=== PATIENT | male | born 1950 | race Caucasian/White ===

== ENCOUNTER 2018-04-17 10:24 | Inpatient (IN) ==
--- NOTE | 2018-04-17 10:52 | EKG Report ---
Test Performed on : 04/17/2018 10:39:45 AM Test Reason : syncope Blood Pressure : / mmHG Vent. Rate : 080 BPM Atrial Rate : 080 BPM P-R Int : 150 ms QRS Dur : 140 ms QT Int : 396 ms P-R-T Axes : 041 041 033 degrees QTc Int : 456 ms Normal sinus rhythm. Right bundle branch block Abnormal ECG No previous ECGs available Unconfirmed Result
[2018-04-17 11:15] LABS: INR 0.99; PROTIME 13.8 Seconds (11.0-16.0)
[2018-04-17 11:16] LABS: PTT 31.4 Seconds (22.3-41.8)
[2018-04-17 11:29] LABS: BASO# 0.05 X1000 (0.0-0.2); BASO% 0.3 % (0.0-0.8); EOS# 0.06 X1000 (0.0-0.7); EOS% 0.4 % (0.0-10.0); HEMATOCRIT 28.4 % (42.0-52.0); HEMOGLOBIN 8.9 g/dL (14.0-18.0); IMM GRAN% 1.3 % (0.0-0.5); LYMPH# 2.05 X1000 (1.2-3.4); LYMPH% 13.8 % (20.5-51.1); MCH 30.2 PG (27-31); MCHC 31.3 g/dL (33-37); MCV 96.3 FL (81-99); MONO# 1.02 X1000 (0.11-0.59); MONO% 6.8 % (1.7-9.3); MPV 11.4 FL (7.4-10.4); NEUT# 11.52 X1000 (1.4-6.5); NEUT% 77.4 % (42.2-75.2); PLT 203 X1000 (130-400); RBC 2.95 XMIL (4.7-6.1); RDW 14.4 % (11.5-14.5)
--- NOTE | 2018-04-17 11:34 | Diag Imaging Result Doc PS360 ---
CHEST-2 VIEWS - 04/17/2018 INDICATION: syncope COMPARISON: None FINDINGS: The lungs are normally expanded and clear. Heart size and mediastinal contours are normal. No pneumothorax or pleural effusion. IMPRESSION: Negative exam. Electronically signed by Ky Skinner 04/17/2018 11:32 AM
[2018-04-17 11:41] LABS: ALB/GLOB RATIO 1.5; ALBUMIN 3.9 g/dL (3.5-5.0); CREATININE 2.6 mg/dL (0.7-1.2); POTASSIUM 5.5 mmol/L (3.5-5.1); TOTAL BILIRUBIN 0.18 mg/dL (0.20-1.00); TOTAL PROTEIN 6.5 g/dL (6.3-8.3)
[2018-04-17] MEDS ORDERED: AFRIN NASAL SPRAY NAS ONE ×3 (12:20→21:51)
--- NOTE | 2018-04-17 12:59 | H&P REVIEW ---
H&P Update Document any changes: Seen and examined by me. Case disucssed with Dr. Garber. Will place rhino rocket left nare and have follow-up with [facility] in [place]. He has renal insufficiency, sees Dr. Loco. Will be ok for d/c. Lab abnormalities are likely chronic, anemia may be acute on chronic.
--- NOTE | 2018-04-17 13:27 | PROVIDER DOCUMENTATION ---
This chart was entered by Nicole Maloney Scribe, acting as scribe for Juanito Garber MD. HPI-EENT General - General Chief Complaint: Nose Bleed Stated Complaint: NOSE BLEED Time Seen by Provider: 04/17/18 11:41 Source: patient - History of Present Illness-EENT General Nature of Presenting Problem: Patient is a 58 year old male who presents to the ED with nosebleed. Patient states nosebleed has been intermittent since last night around 2144. Patient does not report trauma or injury. Patient denies being on a blood thinner. EENT Location: reports: nose Quality of Pain: reports: none Severity: reports: mild Onset/Duration: reports: last night (2144) Timing: reports: still present, intermittent Prearrival Treatment: Initiated no prearrival treatment Associated Symptoms: reports: denies symptoms Locality of Occurance: Home Similar Symptoms Previously?: Yes Recently seen or treated by another doctor?: Yes - Nose Nose Problem Symptoms: nosebleed Review of Systems - Adult - REVIEW OF SYSTEMS - ADULT Constitutional: reports: no symptoms reported Eyes: reports: no symptoms reported Ears, Nose, Mouth & Throat: reports: epistaxis. denies: ear pain, nose pain, throat pain Cardiovascular: reports: no symptoms reported Respiratory: reports: no symptoms reported Gastrointestinal: reports: no symptoms reported Genitourinary: reports: no symptoms reported Musculoskeletal: reports: no symptoms reported Integumentary: reports: no symptoms reported Neurological: reports: no symptoms reported Psychiatric: reports: no symptoms reported Endocrine: reports: no symptoms reported Hematologic/Lymphatic: reports: no symptoms reported Allergic/Immunologic: reports: no symptoms reported All Other Systems: Reviewed and Negative Past History - Adult - PAST MEDICAL HISTORY-ADULT Review of Records: reports: Nursing Assessment Review, Medications Reviewed, Social history reviewed & non-contributory. Major Childhood Illnesses: reports: denies history Cardiovascular: reports: HTN, hyperlipidemia Respiratory: reports: denies history Gastrointestinal: reports: denies history Obstetrical/Gynecological: reports: denies history Genitourinary: reports: denies history Musculoskeletal: reports: denies history Neurological: reports: denies history Psychiatric: reports: denies history Endocrine/Immune: reports: Diabetes Other Conditions: reports: denies history - PRIOR SURGERIES/PROCEDURES Surgical/Procedure History: reports: reviewed, not pertinent - IMMUNIZATION STATUS Childhood Immunizations: See Nurse Assessment Flu Vaccine: See Nurse Assessment - FAMILY HISTORY Family History: reviewed, not pertinent - SOCIAL HISTORY Smoking: cigarettes (former) Substance Use: denies Physical Exam- EENT - Physical Exam EENT Initial Vital Signs Reviewed: Yes General Appearance: alert, no apparent distress Eye Exam: bilateral eye: normal inspection, PERRL, EOMI Ear Exam: bilateral ear: auricle normal, canal normal, TM normal Nasal Exam: active bleeding (bilateral nares) Throat Exam: normal mouth inspection Respiratory: chest non-tender, lungs clear, normal breath sounds Cardiovascular: normal peripheral pulses, regular rate, rhythm Integumentary: normal color, normal turgor, warm/dry Neurologic: grossly normal Psych/Mental Status: normal mood/affect, oriented x 3 Progress - PLAN OF CARE/RESULTS Progress/Plan/Lab Results: Vital Signs - 8 hr 04/17/18 10:27 Pulse Rate 88 Respiratory Rate 18 Blood Pressure 108/62 O2 Sat by Pulse Oximetry 100 Laboratory Results - last 24 hr 04/17/18 04/17/18 04/17/18 10:47 10:47 10:47 WBC 14.90 H RBC 2.95 L Hgb 8.9 L Hct 28.4 L MCV 96.3 MCH 30.2 MCHC 31.3 L RDW Std Deviation 14.4 Plt Count 203 MPV 11.4 H Immature Gran % (Auto) 1.3 H Neut % (Auto) 77.4 H Lymph % (Auto) 13.8 L Loup % (Auto) 6.8 Eos % (Auto) 0.4 Baso % (Auto) 0.3 Immature Gran # (Auto) 0.20 H Neut # (Auto) 11.52 H Lymph # (Auto) 2.05 Loup # (Auto) 1.02 H Eos # (Auto) 0.06 Baso # (Auto) 0.05 PT INR PTT (Actin FS) Sodium 133 L Potassium 5.5 H Chloride 99 Carbon Dioxide 23 L Anion Gap 11 BUN 86 H Creatinine 2.6 H Estimated GFR/1.73 m2 25 BUN/Creatinine Ratio 33 Glucose 137 H Calculated Osmolality 295 Calcium 9.0 Total Bilirubin 0.18 L AST 16 ALT 16 Alkaline Phosphatase 59 Creatine Kinase 165 Troponin T Hje-C-Xoketpomygg Pept 336 H Total Protein 6.5 Albumin 3.9 Globulin 2.6 Albumin/Globulin Ratio 1.5 04/17/18 04/17/18 10:47 10:47 WBC RBC Hgb Hct MCV MCH MCHC RDW Std Deviation Plt Count MPV Immature Gran % (Auto) Neut % (Auto) Lymph % (Auto) Loup % (Auto) Eos % (Auto) Baso % (Auto) Immature Gran # (Auto) Neut # (Auto) Lymph # (Auto) Loup # (Auto) Eos # (Auto) Baso # (Auto) PT 13.8 INR 0.99 PTT (Actin FS) 31.4 Sodium Potassium Chloride Carbon Dioxide Anion Gap BUN Creatinine Estimated GFR/1.73 m2 BUN/Creatinine Ratio Glucose Calculated Osmolality Calcium Total Bilirubin AST ALT Alkaline Phosphatase Creatine Kinase Troponin T 0.021 Epo-B-Euzungrkavz Pept Total Protein Albumin Globulin Albumin/Globulin Ratio Orders Category Date Time Status Cardiac Monitoring DIRECTED Care 04/17/18 10:38 Active Nursing [[facility] [place]. NRSG Communication Order] DIRECTED Care 04/17/18 13:01 Active Oxygen Therapy- ED Nursing DIRECTED Care 04/17/18 10:38 Active Saline Loc NOW Care 04/17/18 10:38 Active CHEST-2 VIEWS [RAD] Stat Exams 04/17/18 10:38 Completed CBC WITH ELECTRONIC DIFF [HEME] Stat Lab 04/17/18 10:47 Completed CK PROFILE [SP CHEM] Stat Lab 04/17/18 10:47 Completed COMPREHENSIVE METABOLIC PANEL [CHEM] Stat Lab 04/17/18 10:47 Completed PRO B-NATRIURETIC PEPTIDE Stat Lab 04/17/18 10:47 Completed PROTIME WITH INR [COAG] Stat Lab 04/17/18 10:47 Completed PTT [COAG] Stat Lab 04/17/18 10:47 Completed TROPONIN T Stat Lab 04/17/18 10:47 Completed Oxymetazoline Nasal Arboles [Afrin Nasal Arboles] Med 04/17/18 12:20 Discontinued 2 ml MELITON NOW ONE CP/SOB/Palp >45 yrs of Age Stat Oth 04/17/18 10:37 Ordered EKG [EKG] Stat Ther 04/17/18 10:38 Draft A/P: Epistaxis. Controlled with direct pressure and afrnin. Pt does not want to have nasal trumpet inserted, would prefer to FU with ENT and have them further evaluate him. Vitals are stable. 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 Pt has possible cellulitis, will Rx keflex. Pt has electrolyte imbalances suspected due to CKD. Will have pt FU with Dr Champagne and Dr Zhu ENT in [place], will also apply bilateral nasal trumpets. Result Diagrams: 04/17/18 10:47 04/17/18 10:47 - REASSESSMENT Reassessment #1 Time Reassessed: 12:19 Status: improving (after applying 10 minutes of constant pressure nosebleed resolved) - EKG 1 Time of EKG reading by physician:: 10:39 EKG Read and Signed by:: Devin Horn EKG Interpretation (*Must complete 3 of following elements*): Abnormal Rate: 80 Rhythm: normal sinus rhythm QRS: RBB NE Interval: normal Comments: abnormal ECG - XRAY 1 XRAY Study: Chest Impression: See EMR Report ( CHEST-2 VIEWS - 04/17/2018 INDICATION: syncope COMPARISON: None FINDINGS: The lungs are normally expanded and clear. Heart size and mediastinal contours are normal. No pneumothorax or pleural effusion. IMPRESSION: Negative exam. Electronically signed by Ky Skinner 2018 11:32 AM 04/17/18 1132 Interpreting Physician: Ky Skinner MD Dictated Date/Time: 04/17/18 1132 cc: Devin Horn MD; ANTONIA LIM) Procedures - ENT PROCEDURES Epistaxis Management: Left Clots cleared from Nasal Passages:: By Patient Blowing Nose Nasal Drops Instilled: Afrin Inspection: Otoscope Cauterized with Silver Nitrate?: No Nasal Rocket Insertion: Left Departure - Departure Date of Disposition Decision: 04/17/18 Time of Disposition Decision: 12:45 DIAGNOSIS: Epistaxis Disposition: HOME 01 Certified Medical Emergency: Emergent Condition: Stable Additional Freetext Instructions: We have examined and treated you today on an emergency basis only. This was not a substitute for, or an effort to provide, complete medical care. In most cases , you must let your doctor check you again. Tell your doctor about any new or lasting problems. We cannot recognize and treat all injuries or illnesses in one Emergency Department visit. If you had special tests, such as X-rays or CT scans, will be reviewed by radiologist and will call you if there are any new suggestions Follow up with primary care provider in 1 to 2 days if no improvement. If you do not have a primary care provider, you need to choose one as soon as possible. Take medicines as prescribed. Monitor for any side effects or adverse events from medications. If any side effect, adverse event or rash develops, or if you suspect any other adverse reaction to the medication, then discontinue the medication immediately and contact clinic /PCP or go to the nearest ER. Narcotic meds / sedative meds instruction - patent advised not to drive, operate any machinery or go into water after taking meds as it may impair mental ability to react to the situation in an appropriate manner. Continue other current medicines. Follow up with PCP within 24-48 hours, or sooner if symptoms worsen or fail to improve. Patient / guardian verbalizes understanding of treatment plan, medication, and side effects and agrees with treatment plan. Patient leaves ER in stable condition and ambulatory state. Return to ER as needed. Discharge instructions reviewed verbally and given to patient in written form. Follow up with primary care provider. Referrals and Follow-Ups: ANTONIA LIM CRNP [Primary Care Provider] - Glen Sandra MD [ACTIVE STAFF PHYSICIAN] - Vandana Davis [NON-STAFF PROVIDER] - - Critical Care Note This patient required my direct & personal management of CC.: No Attestation - Physician/ SABINA Attestation Patient care was provided by Advanced Practice Provider:: No The physician spent face to face time with patient:: Yes Advanced Practice Provider documentation review:: Supervising physician onsite and consulted in the evaluation and care of this patient. The physician did have a face to face encounter with the patient. This chart was documented by the indicated scribe, (Nicole Maloney Scribe) and accurately reflects the services I performed and decisions made by me, Juanito Garber MD, as attested by the provider's signature.
[2018-04-17] MEDS ORDERED: KAYEXALATE PO ONE (15:44)
--- NOTE | 2018-04-17 15:55 | EKG Report ---
Test Performed on : 04/17/2018 2:19:06 PM Test Reason : post cardiac arrest Blood Pressure : / mmHG Vent. Rate : 075 BPM Atrial Rate : 075 BPM P-R Int : 160 ms QRS Dur : 134 ms QT Int : 402 ms P-R-T Axes : 065 040 046 degrees QTc Int : 448 ms Normal sinus rhythm. Right bundle branch block Abnormal ECG When compared with ECG of 17-APR-2018 10:39, (Unconfirmed) No significant change was found Unconfirmed Result
[2018-04-17 16:01] LABS: HEMOGLOBIN A1C 5.1 % (4.8-6.0)
--- NOTE | 2018-04-17 16:21 | Diag Imaging Result Doc PS360 ---
EXAM: CT ABDOMEN/PELVIS W/O CONTRAST INDICATION: vomiting blood TECHNIQUE: This exam was performed using automated exposure control, adjustment of mA or kV according to patient size, and/or use of iterative reconstruction technique. COMPARISON: None. FINDINGS: The liver, gallbladder, spleen, pancreas, adrenal glands, and kidneys are unremarkable. The urinary bladder is nondistended and is grossly unremarkable as imaged with unenhanced CT. There is moderate to advanced diverticulosis coli but no evidence of diverticulitis. The stomach and small bowel are grossly unremarkable as imaged. There is extensive aortoiliac atherosclerotic calcification and there is evidence of prior aortobifem grafting. No focal inflammatory changes, free abdominal gas, or free fluid is identified. IMPRESSION: 1.Uncomplicated diverticulosis coli. 2.Other incidental/nonacute findings detailed above. No definite acute pathology by CT. Electronically signed by Héctor Da Silva 04/17/2018 4:19 PM
--- NOTE | 2018-04-17 16:59 | HISTORY AND PHYSICAL ---
PRIMARY CARE PHYSICIAN: [facility]ero, in [place], [place]. CHIEF COMPLAINT: Nose bleed. HISTORY OF PRESENT ILLNESS: This is a 67-year-old male with a past medical history of hypertension, diabetes, hypercholesteremia, peripheral vascular disease, and chronic kidney disease who presented to the emergency department this morning because he was having nose bleeding again. He reports that yesterday around 10 a.m. he started having nose bleeding that was mostly coming from the left nostril. After he tried to make some compression and put some paper in his nose for a long period of time he was not able to stop the bleeding, so he decided to go to [facility] and he was discharged yesterday. Today he started having nasal bleeding again. Actually he reports that he was not able to sleep because he was having slow nasal bleeding and so he decided to come to this hospital. While he was here in the ER he was feeling lightheaded and he was feeling like he was about to pass out. Actually what he had was syncope because we were informed by the ER that the patient had a cardiorespiratory arrest but it was truly syncope. That lasted just a few seconds. The patient reports that he remembers almost all of the episode. He actually started feeling dizziness this morning. Also while he was in the ER he had one episode of vomiting clots. We were called for admission for those reasons. PAST MEDICAL HISTORY: 1. Diabetes mellitus type 2. 2. Hypertension. 3. Hypercholesteremia. 4. Peripheral vascular disease. 5. Chronic kidney disease stage 2. Dr. Sandra is his primary edge bander hand. PAST SURGICAL HISTORY: Two years ago he had an aortoiliac bypass done in [place]. ALLERGIES: No known drug allergies. SOCIAL HISTORY: He quit smoking 7 years ago but before that he used to smoke 1 pack per day. He drinks 2 cans of beer every day most of the time. He denies using any illicit drugs. REVIEW OF SYSTEMS: Eleven systems were reviewed and all symptoms are related to the H and P. PHYSICAL EXAMINATION: VITAL SIGNS: Temperature has not been checked in the ER. Heart rate 88, respiratory rate 18, blood pressure 108/62, O2 saturation 100% on 2 L nasal cannula. GENERAL EXAMINATION: This is a chronically ill-looking, 67-year-old male, lying in bed, in no acute distress.. HEENT: Head is normocephalic, atraumatic. Mucous membranes dry. Both nostrils are full of blood with many clots located in the left nostril. NECK: No JVD noted. No carotid bruits. No lymphadenopathy. No thyromegaly. CARDIOVASCULAR: S1, S2 heard. No murmurs, gallops, or rubs. Regular rate and rhythm. RESPIRATORY: Wheezing all over both pulmonary oden. Patient is not using any accessory muscles or having work of breathing. ABDOMEN: Soft. Nontender to palpation. Nondistended. There is old surgical scar from the epigastrium all the way down to both legs. No signs of peritoneal irritation. EXTREMITIES: No clubbing, cyanosis, or edema. Peripheral pulses present in both legs. NEUROLOGICAL: Patient is alert and oriented x3. Moves 4 extremities. LABORATORY DATA: White cell count 14.9, hemoglobin 8.9, hematocrit 28.4, platelets 203,000. Sodium 133, potassium 5.5, chloride 99, and creatinine 2.6. ProBNP 336. ASSESSMENT AND PLAN: 1. Severe epistaxis. That is the reason why this patient basically came to the hospital. It was severe enough to cause lightheadedness and 1 episode of vasovagal syncope. At this point, we will check BMP and will check CBC tomorrow. Will call ENT and inform them that this patient has had profuse epistaxis to the point that he had a syncopal episode. 2. Chronic obstructive pulmonary disease exacerbation. Patient has no history of COPD but considering his long history of smoking, I think he is in exacerbation. We will provide DuoNeb every 6 hours scheduled and every 2 hours p.r.n. Because there is an elevated white cell count and the patient has not been taking any antibiotics, I think will add Levaquin to his current treatment. 3. Hyperkalemia. We know that this patient has known chronic kidney disease stage 3. We are going to provide 1 dose of Kayexalate by mouth and see how he does. 4. Chronic kidney disease stage 3. We do not have any creatinine to compare. In any case, we are going to monitor this patient closely. 5. Diabetes mellitus type 2. We will do hemoglobin A1c and will do sliding scale insulin. Accu- Chek before meals and also at bedtime. 6. Hematemesis. I think he has vomited blood because he has been dripping blood from his nose for last at least 24 hours. We are going to check a CT of the abdomen without contrast to see if there is any abnormality in the GI tract and we may need to do a GI consult but not at this time. 7. Hypertension. Blood pressure is under control. I do not think we need to restart any of his medications. 8. Peripheral vascular disease. We will continue home medications. 9. Further recommendations to follow according to the clinical situation of the patient. cc: Will Rucker MD MTDD
[2018-04-17] MEDS: LEVAQUIN 750 MG/D5W 750 MG/150 ML IVPB IV SCH (17:48)
[2018-04-17] MEDS ORDERED: DUONEB (A & A) INH PRN (18:27)
[2018-04-17] MEDS ORDERED: NS 1,000 ML IV ONE (18:27)
[2018-04-17] MEDS ORDERED: ZOFRAN IV PRN (18:27)
[2018-04-17] MEDS ORDERED: VITAMIN D PO SCH (18:27)
[2018-04-17] MEDS: HUMALOG SUBQ SCH (18:31)
[2018-04-17] MEDS: SODIUM CHLORIDE 0.9% INJ SCH (18:52)
[2018-04-17] MEDS: NS 1,000 ML IV SCH (18:52)
[2018-04-17] MEDS: PROTONIX IV SCH (18:52)
[2018-04-17 20:15] LABS: INR 1.05; PROTIME 14.5 Seconds (11.0-16.0)
[2018-04-17 20:16] LABS: BASO# 0.06 X1000 (0.0-0.2); BASO% 0.5 % (0.0-0.8); EOS# 0.02 X1000 (0.0-0.7); EOS% 0.2 % (0.0-10.0); HEMATOCRIT 23.2 % (42.0-52.0); HEMOGLOBIN 7.3 g/dL (14.0-18.0); IMM GRAN# 0.21 X1000 (0.0-0.04); IMM GRAN% 1.6 % (0.0-0.5); LYMPH# 1.97 X1000 (1.2-3.4); LYMPH% 14.8 % (20.5-51.1); MCHC 31.5 g/dL (33-37); MCV 95.5 FL (81-99); MONO% 6.8 % (1.7-9.3); MPV 11.3 FL (7.4-10.4); NEUT# 10.12 X1000 (1.4-6.5); NEUT% 76.1 % (42.2-75.2); PLT 190 X1000 (130-400); RBC 2.43 XMIL (4.7-6.1); WBC 13.28 X1000 (4.8-10.8)
[2018-04-17 20:33] LABS: CALCIUM 8.5 mg/dL (8.8-10.2); CREATININE 3.2 mg/dL (0.7-1.2); MAGNESIUM 1.9 mg/dL (1.5-2.7)
[2018-04-17] MEDS: DUONEB (A & A) INH SCH (21:23)
[2018-04-18] MEDS: HUMALOG SUBQ SCH ×5 (00:52→22:25)
[2018-04-18] MEDS: NS 1,000 ML IV SCH ×4 (02:02→18:49)
[2018-04-18] MEDS: AFRIN NASAL SPRAY NAS SCH ×4 (02:27→23:33)
[2018-04-18 03:05] LABS: HEMATOCRIT 27.9 % (42.0-52.0); HEMOGLOBIN 9.1 g/dL (14.0-18.0)
[2018-04-18] MEDS: DUONEB (A & A) INH SCH ×5 (03:23→22:00)
[2018-04-18] MEDS: PROTONIX IV SCH ×3 (06:21→18:00)
[2018-04-18] MEDS: SODIUM CHLORIDE 0.9% INJ SCH (06:21)
[2018-04-18 06:54] LABS: BASO# 0.03 X1000 (0.0-0.2); BASO% 0.3 % (0.0-0.8); EOS# 0.02 X1000 (0.0-0.7); EOS% 0.2 % (0.0-10.0); HEMATOCRIT 22.1 % (42.0-52.0); HEMOGLOBIN 6.9 g/dL (14.0-18.0); IMM GRAN# 0.26 X1000 (0.0-0.04); IMM GRAN% 2.4 % (0.0-0.5); LYMPH% 10.9 % (20.5-51.1); MCH 29.7 PG (27-31); MCHC 31.2 g/dL (33-37); MCV 95.3 FL (81-99); MONO# 1.01 X1000 (0.11-0.59); MONO% 9.2 % (1.7-9.3); MPV 11.4 FL (7.4-10.4); NEUT# 8.47 X1000 (1.4-6.5); PLT 131 X1000 (130-400); RBC 2.32 XMIL (4.7-6.1); RDW 14.6 % (11.5-14.5); WBC 10.99 X1000 (4.8-10.8)
[2018-04-18 07:23] LABS: CREATININE 2.4 mg/dL (0.7-1.2); POTASSIUM 3.7 mmol/L (3.5-5.1)
--- NOTE | 2018-04-18 07:25 | EKG Report ---
Test Performed on : 04/17/2018 7:16:45 PM Test Reason : passed out Blood Pressure : / mmHG Vent. Rate : 106 BPM Atrial Rate : 106 BPM P-R Int : 148 ms QRS Dur : 132 ms QT Int : 382 ms P-R-T Axes : 066 -15 043 degrees QTc Int : 507 ms Sinus tachycardia. Right bundle branch block Abnormal ECG When compared with ECG of 17-APR-2018 14:19, (Unconfirmed) No significant change was found Confirmed by Raudel LEMUS, Jorge Ramos ([id number]) on 04/18/2018 8:50:09 AM
[2018-04-18 07:27] LABS: CALCIUM 6.1 mg/dL (8.8-10.2)
[2018-04-18 07:38] LABS: INR 1.3; PROTIME 17.2 Seconds (11.0-16.0)
[2018-04-18] MEDS ORDERED: CALCIUM GLUCONATE 1 GM in NS 50 ML IV ONE (08:05)
[2018-04-18] MEDS: CARDIZEM CD PO SCH ×2 (08:55)
[2018-04-18] MEDS: VITAMIN B-12 PO SCH (08:55)
[2018-04-18] MEDS: ZETIA PO SCH (08:55)
[2018-04-18] MEDS: CRESTOR PO SCH (08:56)
[2018-04-18] MEDS ORDERED: ACTOS PO SCH (09:00)
--- NOTE | 2018-04-18 09:42 | PROGRESS NOTE ---
DATE: 04/18/2018 SUBJECTIVE: The patient was examined this morning, doing well. Eating full breakfast. No further bleeding. Epistaxis is controlled with current pack. DIAGNOSTIC DATA: Hematocrit this morning at 22. IMPRESSION: 1. Epistaxis, controlled with current pack. We will leave the pack in the nasal cavity until Saturday. He does not necessarily need to be in the hospital because of the pack. We will defer to the medical team for discharge options. If he is discharged home in good medical condition, he will be seen in my office on Saturday for pack removal. 2. Anemia. He has received 2 units of packed red cells, and according to nursing this morning, the plan is for 2 more units today. 3. Discharge plan. We will defer to medical team. If epistaxis is controlled, then he can be discharged at their discretion. cc: Johann Loaiza MD
[2018-04-18] MEDS: MAGNESIUM GLUCONATE PO SCH (09:54)
--- NOTE | 2018-04-18 12:48 | PROGRESS NOTE ---
DATE: 04/18/2018 SUBJECTIVE: The patient reports feeling fine. No more bleeding. He reports feeling hungry. No other complaints noted. No abdominal pain. OBJECTIVE: Vital Signs: Temperature 98.9, heart rate 94, respiration 17, blood pressure 144/61. O2 saturation 100% on 4 L nasal cannula. General: This is a chronically ill- looking, obese, 67- year-old male lying in bed in no acute distress. HEENT: Head is normocephalic, atraumatic. There is a pack in the left nostril. No active bleeding noted. Neck: No JVD noted. No carotid bruits. No lymphadenopathy. No thyromegaly. Cardiovascular: S1, S2 heard. No murmurs, gallops, or rubs. Regular rate and rhythm. Respiratory: There is less wheezing noted in both pulmonary oden. The patient is not using any accessory muscles or having work of breathing. Abdomen is soft, nontender to palpation. Bowel sounds present. No organomegaly. Extremities: No clubbing, cyanosis, or edema. Peripheral pulses present in both legs. Neurologic: Patient alert and oriented x3. Moves 4 extremities. LABORATORY DATA: White count 10.99, hemoglobin 6.9, hematocrit 22.1, platelets 131,000 with INR 1.3. BMP remarkable for creatinine 2.4 with calcium 6.1. ASSESSMENT AND PLAN: 1. Severe epistaxis. That condition is controlled right now. ENT, Dr. Loaiza, saw this patient last night and placed a pack in the left nostril. Since then he has been controlling it. At this point, we will continue to follow recommendations from him which are keeping that pack on until next Saturday. 2. Anemia of blood loss. Hemoglobin is 6.9 this morning. Hemoglobin drawn here in this hospital was 8.9. He has received so far 2 units of blood. At this point, I prefer to go ahead and transfuse 2 more units and see how he does. He is not feeling nauseated. He does not have anymore episodes of nose bleeding. We will continue checking CBC daily. 3. Chronic obstructive pulmonary disease exacerbation. Patient is receiving breathing treatments with DuoNeb every 6 hours and every 2 hours p.r.n. Since then, he reports breathing much better. The patient is also receiving Levaquin daily and white cell count is getting better. We will continue with the same management. 4. Hyperkalemia. Potassium is back to normal today. 5. Chronic kidney disease, stage 3. Creatinine is back to baseline; it is 2.4 today. We will continue monitoring this patient closely. 6. Diabetes mellitus, type 2. Hemoglobin A1c is 5.1, which is good controlled diabetes. We will continue with Accu-Cheks before meals and also at bedtime. 7. Hypertension. Blood pressure is under control. I do not think we need to restart any medication we will continue to monitor. 8. Peripheral vascular disease. Patient will be continue with home medications. DISPOSITION: We are going to continue to monitor this patient 1 more day in the Intensive Care Unit and make sure that he is hemodynamically stable and then he can be transferred to a regular room tomorrow if everything is okay. cc: Will Rucker MD MTDD
[2018-04-18] MEDS ORDERED: TEARISOL OPH SOLUTION BOTH EYES PRN (15:08)
[2018-04-18] MEDS: LEVAQUIN 750 MG/D5W 750 MG/150 ML IVPB IV SCH (17:18)
[2018-04-18] MEDS: APRESOLINE IV PRN ×2 (18:03→23:38)
[2018-04-18] MEDS ORDERED: TYLENOL PO PRN (23:00)
[2018-04-19] MEDS: DUONEB (A & A) INH SCH ×2 (03:35→10:49)
[2018-04-19] MEDS: NS 1,000 ML IV SCH ×2 (05:35→11:55)
[2018-04-19] MEDS: PROTONIX IV SCH (05:35)
[2018-04-19] MEDS: HUMALOG SUBQ SCH ×2 (06:03→12:20)
[2018-04-19 07:32] LABS: INR 1.04; PROTIME 14.4 Seconds (11.0-16.0)
[2018-04-19 07:39] LABS: CALCIUM 8.7 mg/dL (8.8-10.2); CREATININE 1.9 mg/dL (0.7-1.2); POTASSIUM 4.5 mmol/L (3.5-5.1)
[2018-04-19 07:40] LABS: BASO# 0.03 X1000 (0.0-0.2); BASO% 0.2 % (0.0-0.8); EOS# 0.07 X1000 (0.0-0.7); EOS% 0.6 % (0.0-10.0); HEMATOCRIT 32.8 % (42.0-52.0); HEMOGLOBIN 10.3 g/dL (14.0-18.0); IMM GRAN# 0.31 X1000 (0.0-0.04); IMM GRAN% 2.5 % (0.0-0.5); LYMPH# 1.29 X1000 (1.2-3.4); LYMPH% 10.4 % (20.5-51.1); MCH 29.3 PG (27-31); MCHC 31.4 g/dL (33-37); MCV 93.4 FL (81-99); MONO# 1.23 X1000 (0.11-0.59); MONO% 9.9 % (1.7-9.3); MPV 10.3 FL (7.4-10.4); NEUT% 76.4 % (42.2-75.2); PLT 155 X1000 (130-400); RBC 3.51 XMIL (4.7-6.1); WBC 12.43 X1000 (4.8-10.8)
[2018-04-19] MEDS: ZETIA PO SCH (10:29)
[2018-04-19] MEDS: CARDIZEM CD PO SCH ×2 (10:29→10:31)
[2018-04-19] MEDS: CRESTOR PO SCH (10:31)
[2018-04-19] MEDS: VITAMIN B-12 PO SCH (10:31)
[2018-04-19] MEDS: MAGNESIUM GLUCONATE PO SCH (10:31)
[2018-04-19] MEDS: AFRIN NASAL SPRAY NAS SCH (10:32)
[2018-04-19 12:21] VITALS: BP 153/78
--- NOTE | 2018-04-19 15:30 | DISCHARGE SUMMARY ---
ADMISSION DATE: 04/17/2018 DISCHARGE DATE: 04/19/2018 DISCHARGE DIAGNOSES: 1. Severe epistaxis, resolved. 2. Chronic obstructive pulmonary disease exacerbation, improved. 3. Hyperkalemia, resolved. 4. Chronic kidney disease stage 3, stable. 5. Diabetes mellitus type 2. 6. Hypertension. 7. Peripheral vascular disease. CONSULTATIONS: Dr. Johann Loaiza, ENT. PROCEDURES: Chest x-ray done on admission showed negative exam. Abdomen and pelvis CT showed uncomplicated diverticulosis coli with no acute findings. HOSPITAL COURSE: This is a 53-year-old male with past medical history of diabetes, hypertension, hyperlipidemia, peripheral vascular disease, who presented to the emergency department complaining of severe nose bleeding from the left nostril. The patient reported that 1 day before, he started having profuse nose bleeding, so he went to [facility], and he was given intranasal medication, and he was sent home. At home, he continued to have bleeding. Actually the night before admission, he was apparently bleeding all night long, so that stopped for a few hours, and then he started having bleeding again, so he decided to come to the emergency department. He was found to have anemia. Also he vomited blood secondary to ingestion of this blood coming from the nose. We consulted ENT who were able to control the bleeding. He received so far 3 units of blood now, and hemoglobin is much more stable. The patient is now feeling okay and wanted to go home. The patient is supposed to see Dr. Loaiza, ENT, in his office next Saturday to remove the anterior rocket that he did. The patient is being discharged in stable condition. DISCHARGE PHYSICAL EXAMINATION: VITAL SIGNS: Temperature is 98.1, heart rate 95, respiratory rate 22, blood pressure 153/70, O2 saturation is 98% on room air. GENERAL: This is a 67-year-old male lying in bed, in no acute distress. HEENT: Head is normocephalic and atraumatic. NECK: No JVD noted. No carotid bruit. No lymphadenopathy. No thyromegaly. CARDIOVASCULAR: S1 and S2 heard. No murmurs, rubs or gallops. Regular rate and rhythm. RESPIRATORY: Decreased breath sounds globally with minimal crackles in both pulmonary bases. ABDOMEN: Soft, nontender to palpation. Bowel sounds present. No organomegaly. EXTREMITIES: No cyanosis, clubbing or edema. Peripheral present in both legs. NEUROLOGICAL: The patient is alert and oriented x3. Moves all 4 extremities. DISCHARGE DISPOSITION: Home to self care. FOLLOWUP: Dr. Loaiza next Saturday. MEDICATIONS: We are not going to make any changes to his current medications. Time discharging this patient was 28 minutes. cc: Will Rucker MD
== END 2018-04-19 13:09 | disposition home or self-care (01) | DRG 151 ==
LOC: ED 10:24 → EDIPHOLD 16:43 → 4N 16:59 → ICU 23:34 → 3N 04-18 18:43
PROVIDERS: ATTEND Internal Medicine
CPT/HCPCS: 36430; 71020; 71046; 74176; 80048; 80053; 82550; 82948; 83036; 83735; 83880; 84484; 85014; 85018; 85025; 85610; 85730; 86850; 86900; 86901; 86920; 93005; 93010; 94640; 94761; 96374; 97161; 99285; A9270; C9113; J0360; J0610; J1815; J1956; J7030; P9016; S0164; XXXXX